=== PATIENT | male | born 1950 | race Caucasian/White ===

== ENCOUNTER 2022-03-19 20:11 | Emergency (ER) | payer BC, OTHER ==
[2022-03-19] MEDS ORDERED: LIDOCAINE 5% TOPICAL PATCH TP ONE (20:18)
[2022-03-19] MEDS ORDERED: LIDOCAINE 5% TOPICAL PATCH ONE (20:37)
[2022-03-19 21:20] VITALS: BP 140/93; PULSE 90; RESP 20; TEMP 98.1; BMI 28.3
[2022-03-19] MEDS ORDERED: METHOCARBAMOL 500 MG TABLET PO ONE (21:55)
[2022-03-19] MEDS ORDERED: METHOCARBAMOL 500 MG TABLET ONE (21:59)
[2022-03-19] MEDS ORDERED: LIDOCAINE PATCH REMOVAL MC SCH (22:00)
== END 2022-03-19 22:03 | disposition home or self-care (01) ==
LOC: FER 20:11
DX: M62.838 Other muscle spasm (principal)
CPT/HCPCS: 71101-TC-LT-FY; 93005; 99284-25